=== PATIENT | male | born 1960 | race Caucasian/White ===

== ENCOUNTER 2021-10-05 13:59 | Emergency (ER) | payer OTHER ==
[2021-10-05] MEDS ORDERED: Calcium Chloride 1 GM/10 ML Abboject SYRINGE IVP ONE (14:00)
[2021-10-05] MEDS ORDERED: EPINEPHrine 1 MG/10 ML Abboject SYRINGE IVP ONE (14:00)
[2021-10-05 14:13] LABS: #Basophils 0.1 thou/uL (0.0-0.2); #Eosinphils 0.1 thou/uL (0.0-0.7); #Lymphocytes 4.5 thou/uL (1.20-3.40); #Monocytes 0.5 thou/uL (0.11-0.59); #Neutrophils 7.6 thou/uL (1.40-6.50); %Basophils 0.6 % (0.0-1.0); %Eosinophils 0.5 % (0.0-10.0); %Lymphocytes 35.5 % (21.0-51.0); %Monocytes 3.6 % (0.0-10.0); %Neutrophils 59.8 % (42.0-75.0); Hemoglobin 17.1 g/dL (14.0-18.0); Mean Corpuscular HGB CONC 31.1 g/dL (32.0-36.0); Mean Corpuscular Hemoglobin 29.9 pg (27.0-31.0); Mean Corpuscular Volume 95.9 fL (78.0-98.0); Mean Platelet Volume 9.5 fL (7.4-10.4); Platelet Count 129 thou/uL (130-400); RBC Distribution Width 12.1 % (11.5-14.5); Red Blood Cell (RBC) Count 5.74 mill/uL (4.70-6.10); White Blood Cell (WBC) Count 12.7 thou/uL (4.8-10.8)
[2021-10-05 14:24] LABS: INR-International Normal Ratio 1.5; Prothrombin Time 18.8 sec (12.0-14.7)
[2021-10-05 14:26] LABS: PTT 67.7 sec (22.9-36.1)
[2021-10-05 14:34] LABS: ALT (SGPT) 116 U/L (8-55); AST (SGOT) 122 U/L (5-34); Albumin 3.6 g/dL (3.5-5.0); Alkaline Phosphatase 75 U/L (40-110); Anion Gap 33 mmol/L (10-20); BUN (Urea Nitrogen) 15 mg/dL (8.4-25.7); Bilirubin, Total 0.5 mg/dL (0.2-1.2); Calc. Creatinine Clearance 0 mL/min (70-130); Carbon Dioxide 13 mmol/L (22-29); Chloride 102 mmol/L (98-107); Glucose 365 mg/dL (70-105); Protein, Total 6.6 g/dL (6.0-8.3); Sodium 144 mmol/L (136-145)
[2021-10-05 14:42] LABS: Calcium 12.3 mg/dL (7.8-10.44)
[2021-10-05 15:01] LABS: CK (CPK) 334 U/L (30-200); CRP (Inflammatory) Less than 0.50 mg/dL (= or < 0.5)
[2021-10-05 15:03] LABS: CKMB 25.2 ng/mL (0-6.6)
[2021-10-05] MEDS ORDERED: Sodium Bicarb 50 MEQ/50 ML Abboject 8.4% SYRINGE IVP ONE (16:51)
== END 2021-10-05 14:16 | disposition expired ==
LOC: MADERS 13:59
DX: I46.9 Cardiac arrest, cause unspecified (principal); I26.99 Other pulmonary embolism without acute cor pulmonale
CPT/HCPCS: 80053; 82550; 82553; 84484; 85025; 85379; 85610; 85730; 86140; 92950; 96374; 96375; J0171